=== PATIENT | male | born 1990 | race Caucasian/White ===

== ENCOUNTER 2019-12-30 12:43 | Emergency (ER) | payer MEDICAID, OTHER ==
[2019-12-30] MEDS ORDERED: Lidocaine 1% 10 ML MDV INJECT ONE (13:06)
--- NOTE | 2019-12-30 13:09 | EDM.PDOC ---
ED HPI GENERAL MEDICAL PROBLEM - General Chief Complaint: Laceration Stated Complaint: L WRIST LAC Time Seen by Provider: 12/30/19 12:51 Source of Information: Reports: Patient, RN Notes Reviewed History Limitations: Reports: No Limitations - History of Present Illness INITIAL COMMENTS - FREE TEXT/NARRATIVE: Patient is a 29-year-old male who presents to the ED for the evaluation of a left wrist laceration. Patient states he was in his garage, got his feet entangled in some children's toys and he started to fall. He try to catch himself, and ended up lacerating his left wrist on a wooden counter in the garage. He notes that it did bleed initially, but the bleeding is now under control. He is not complaining of any numbness or tingling distal to the injury, and he still has good acute care occupational therapist strength, and can move fingers in all range of motion with no difficulty. Patient states he is not sure of his last tetanus booster, but states he is not really keen on getting one today if he does not need one. This is a roughly 3 cm laceration to the patient's anterior wrist on the ulnar aspect side right at the wrist joint. Other than this, he states he was feeling well, denies any fevers or chills, cough/shortness of breath, nausea/vomiting/diarrhea. Left Wrist Pain Score (Numeric/FACES): 4 - Related Data Allergies Allergy/AdvReac Type Severity Reaction Status Date / Time No Known Allergies Allergy Verified 12/30/19 13:10 Home Meds: Home Meds . [No Known Home Meds] 12/30/19 [History] Past Medical History - Past Health History Medical/Surgical History: Denies Medical/Surgical History Social & Family History - Tobacco Use Smoking Status *Q: Never Smoker Second Hand Smoke Exposure: No - Caffeine Use Caffeine Use: Reports: None - Recreational Drug Use Recreational Drug Use: No ED ROS GENERAL - Review of Systems Review Of Systems: Comprehensive ROS is negative, except as noted in HPI. ED EXAM, SKIN/RASH Exam: See Below Exam Limited By: No Limitations General Appearance: Alert, WD/WN, No Apparent Distress Respiratory/Chest: No Respiratory Distress, Lungs Clear, Normal Breath Sounds, No Accessory Muscle Use, Chest Non-Tender Cardiovascular: Normal Peripheral Pulses, Regular Rate, Rhythm, No Murmur Peripheral Pulses: 2+: Radial (L), Radial (R) Extremities: Normal Range of Motion, Normal Capillary Refill Neurological: Alert, Oriented, Normal Cognition, No Motor/Sensory Deficits Psychiatric: Normal Affect, Normal Mood Skin: Warm, Dry, Normal Color, No Rash, Wound/Incision (3cm curvilinear skin flap type laceration to left anterior wrist at the ulnar aspect.) ED SKIN PROCEDURES - Laceration/Wound Repair Left Anterior Medial Wrist Appearance: Subcutaneous, Linear (curvilinear), Clean Distal NVT: Neuro & Vascular Intact, No Tendon Injury Anesthetic Type: Local Local Anesthesia - Lidocaine (Xylocaine): 1% Plain Local Anesthetic Volume: 4cc Skin Prep: Chlorhexidine (Hibiciens), Saline Exploration/Debridement/Repair: Wound Explored, In a Bloodless Field, Explored to Base, No Foreign Material Found Closed with: Sutures Lac/Wound length In cm: 3 Suture Size: 4-0 # of Sutures: 10 Suture Type: Prolene, Interrupted, Simple Sterile Dressing Applied: Nurse Tetanus Status Addressed: Yes Complications: No Course - Vital Signs Last Recorded V/S: Last Vital Signs Temp 97.6 F 12/30/19 12:51 Pulse 85 12/30/19 12:51 Resp 16 12/30/19 12:51 BP 129/87 12/30/19 12:51 Pulse Ox 97 12/30/19 12:51 - Orders/Labs/Meds Meds: Medications Discontinued Medications Generic Name Dose Route Start Last Admin Trade Name Kira PRN Reason Stop Dose Admin Lidocaine HCl 10 ml 12/30/19 13:06 12/30/19 13:09 Xylocaine 1% INJECT 12/30/19 13:07 10 ml ONETIME ONE Administration Departure - Departure Time of Disposition: 13:09 Disposition: Home, Self-Care 01 Condition: Good Clinical Impression: Laceration of wrist, left Qualifiers: Encounter type: initial encounter Qualified Code(s): S61.512A - Laceration wit hout foreign body of left wrist, initial encounter - Discharge Information *PRESCRIPTION DRUG MONITORING PROGRAM REVIEWED*: No *COPY OF PRESCRIPTION DRUG MONITORING REPORT IN PATIENT LATONYA: No Instructions: Sutured Wound Care, [id number] Referrals: PCP,None [Primary Care Provider] - Forms: ED Department Discharge, ED Return to Work/School Form Additional Instructions: You have been evaluated in the ED for your laceration. Sutures will need to stay in for 10-14 days. You may return to the ED or any clinic for removal. Please keep this area clean and dry, you may cleanse with regular soap and water. No vigorous scrubbing. Please try to avoid submerging the affected area in water for prolonged periods of time until the sutures are removed. Watch out for signs of infection like increased redness, swelling, pain at the laceration site, or if you should develop any fevers or chills. Please return to ED if your symptoms change or worsen. Sepsis Event Note (ED) - Evaluation Sepsis Screening Result: No Definite Risk - Focused Exam Vital Signs: Vital Signs Temp Pulse Resp BP Pulse Ox 12/30/19 12:51 97.6 F 85 16 129/87 97
== END 2019-12-30 14:25 | disposition home or self-care (01) ==
LOC: JD.ED 12:43
DX: S61.512A Laceration without foreign body of left wrist, initial encounter (principal); W19.XXXA Unspecified fall, initial encounter; Y92.59 Other trade areas as the place of occurrence of the external cause
CPT/HCPCS: 12002; 99282; J2001